=== PATIENT | female | born 1945 | race Caucasian/White ===

== ENCOUNTER 2018-09-07 09:54 | Outpatient (CLI) | payer MEDICARE ==
--- NOTE | 2018-09-07 10:32 | RAD ---
PA AND LATERAL CHEST: History: Dyspnea. FINDINGS: Heart size and mediastinum within normal limits. The lungs are clear of infiltrates. Arthritic change s of the spine are noted. Linear scarring is seen in the left base. In comparison to the 09-01-18 stud y, I do not see any interval change. IMPRESSION: Stable chest. POS: [facility]
== END 2018-09-07 09:55 | disposition home or self-care (01) ==
LOC: RAD 09:54
PROVIDERS: ATTEND Internal Medicine Critical Care Medicine
DX: R06.00 Dyspnea, unspecified (principal)
CPT/HCPCS: 71046

== ENCOUNTER 2021-11-07 08:51 | Outpatient (CLI) | payer MEDICARE | END 2021-11-07 08:52 | disposition home or self-care (01) | LOC: RAD 08:51 | PROVIDERS: ATTEND Internal Medicine Critical Care Medicine | DX: R06.00 Dyspnea, unspecified (principal) | CPT/HCPCS: 71046 ==

== ENCOUNTER 2021-12-30 07:10 | Outpatient (CLI) | payer MEDICARE | END 2021-12-30 07:11 | disposition home or self-care (01) | LOC: NM 07:10 | PROVIDERS: ATTEND Physician Assistant | DX: E21.2 Other hyperparathyroidism (principal); D35.1 Benign neoplasm of parathyroid gland | CPT/HCPCS: 78072; A9500 ==

== ENCOUNTER 2022-01-30 09:09 | Day surgery (SDC) | payer MEDICARE ==
[2022-01-29 09:48] VITALS: BMI 36.0
[2022-01-30] MEDS ORDERED: Bacitracin Zinc Ointment 30 gm TUBE ONE (11:15)
[2022-01-30] MEDS ORDERED: Lidocaine 1% (PF) 30 ML VIAL ONE (11:15)
[2022-01-30] MEDS ORDERED: EPINEPHrine 1 MG/ML AMP ONE (11:15)
[2022-01-30 12:06] LABS: Hemoglobin 13.5 g/dL (12.0-16.0)
[2022-01-30 12:30] LABS: Anion Gap 15 mmol/L (10-20); BUN (Urea Nitrogen) 13 mg/dL (9.8-20.1); Calc. Creatinine Clearance 107 mL/min (70-130); Calcium 11.2 mg/dL (7.8-10.44); Carbon Dioxide 25 mmol/L (23-31); Chloride 102 mmol/L (98-107); Estimated GFR 83; Glucose 102 mg/dL (83-110); Potassium 3.8 mmol/L (3.5-5.1); Sodium 138 mmol/L (136-145)
[2022-01-30] MEDS ORDERED: fentaNYL Citrate/PF 100 MCG/2 ML SYRINGE ONE (12:47)
[2022-01-30] MEDS ORDERED: Dexamethasone 20 MG/5 ML VIAL ONE (12:55)
[2022-01-30] MEDS ORDERED: PROPOFOL 200 MG/20 ML VIAL ONE (12:55)
[2022-01-30] MEDS ORDERED: ePHEDrine 50 MG/ML VIAL ONE (12:55)
[2022-01-30] MEDS ORDERED: Calcium Chloride 1 GM/10 ML Abboject SYRINGE ONE (12:55)
[2022-01-30] MEDS ORDERED: Phenylephrine 10 MG/ML VIAL ONE (12:55)
[2022-01-30] MEDS ORDERED: Ondansetron PF 4 MG/2 ML Vial ONE (12:55)
[2022-01-30] MEDS ORDERED: PROPOFOL 40 ML ONE (13:56)
== END 2022-01-30 16:20 | disposition home or self-care (01) ==
LOC: SDC 09:09
PROVIDERS: ATTEND Specialist
PROC: 0GTQ0ZZ Resection of Multiple Parathyroid Glands, Open Approach (ICD-10-PCS; principal; 2022-01-30)
DX: D35.1 Benign neoplasm of parathyroid gland (principal); E21.0 Primary hyperparathyroidism; J45.909 Unspecified asthma, uncomplicated; M19.90 Unspecified osteoarthritis, unspecified site; I10 Essential (primary) hypertension; Z79.899 Other long term (current) drug therapy; Z88.1 Allergy status to other antibiotic agents; Z88.2 Allergy status to sulfonamides; Z88.5 Allergy status to narcotic agent; Z88.8 Allergy status to other drugs, medicaments and biological substances
CPT/HCPCS: 60500; 80048; 85014; 85018; 93005; C1713; C1776; 88305; 88331; 93010; J0171; J1100; J2001; J2370; J2405; J2704; J3490